=== PATIENT | female | born 1970 | race Caucasian/White ===

== ENCOUNTER 2016-11-08 20:22 | Emergency (ER) | payer OTHER ==
--- NOTE | 2016-11-08 21:09 | DIAGNOSTIC IMAGING REPORT ---
PROCEDURE: XR CHEST 1 VIEW INDICATION: CHEST PAIN TECHNIQUE: Portable AP view 08:52 p.m. COMPARISON: None. FINDINGS: Lungs are clear. Heart and mediastinum are normal. Thorax is normal. IMPRESSION: 1. Negative chest.
--- NOTE | 2016-11-08 21:42 | ED CLINICAL REPORT ---
Clinical Report - Physicians/Mid Levels [facility] [address] [place] [place] [address] 11/08/2016 20:23 Patient: BERNIE PARKS Time Seen: 20:36. Arrived- By private vehicle. Historian- patient. HISTORY OF PRESENT ILLNESS Chief Complaint: CHEST PAIN. This started today and is still present. It was abrupt in onset and has been constant. Onset during sleep. At its maximum, severity described as 5 / 10. When seen in the E.D., severity described as 5 / 10. Modifying factors- worsened by exertion, movement and walking. It is described as pressure and it is described as located in the central chest area. No radiation. No nausea, vomiting or diaphoresis. She has had mild difficulty breathing on exertion. The patient has had additional mild right-sided chest pain "pulsing". Similar symptoms previously: None. REVIEW OF SYSTEMS The patient has had a mild nonproductive cough. No pedal edema or edema, calf pain or pain or chills. No fever, sweats, cough, palpitations or abdominal pain. No constipation, diarrhea, nausea, vomiting or urinary problems. All systems otherwise negative, except as recorded above. PAST HISTORY Primary physician (Prosper). Problems: no known problems. Medications: None. Allergies: No Known Drug Allergy. SOCIAL HISTORY Never smoker. Occasional alcohol use. No drug use. FAMILY HISTORY No history of aortic aneurysm or dissection. Heart disease in first-degree relative (mother); cancer in first-degree relative (father). ADDITIONAL NOTES The nursing notes have been reviewed. PHYSICAL EXAM Vital Signs: 11/08/2016 20:31 BP: 155/98. HR: 92. RR: 18. O2 saturation: 97%. Temp: 97.9 F. Pain level now: 5/10. Have been reviewed. Appearance: Alert. She is morbidly obese. Eyes: Eyes normal inspection. ENT: Ears normal. Pharynx normal. Neck: Normal inspection. Neck supple. CVS: Normal heart rate and rhythm. Heart sounds normal. Respiratory: No respiratory distress. Chest pain reproducible with palpation of the sternum. Breath sounds normal. Abdomen: Soft and nontender. Bowel sounds normal. No organomegaly. No mass. Obese. Skin: Skin warm and dry. Normal skin color. Normal skin turgor. Extremities: Extremities exhibit normal ROM. No calf tenderness. No lower extremity edema. LABS, X-RAYS, AND EKG EKG: Rate: 87. Incomplete RBBB. Prior EKG unavailable. The study has been independently viewed by me. Chest X-ray: (IMPRESSION: 1. Negative chest.). The X-rays were interpreted by the radiologist and contemporaneously by me. Laboratory Tests: CBC w Diff: (SHARONA: 11/08/2016 20:35) ( MsgRcvd 11/08/2016 20:55) Final results Test Result Flag Units (Reference) WHITE BLOOD COUNT 7.7 K/uL (4.5-11.5) RED BLOOD COUNT 4.19 M/uL (4.00-5.20) HEMOGLOBIN 13.3 gm/dL (12.0-16.0) HEMATOCRIT 38.8 % (36.0-46.0) MEAN CELL VOLUME 93 fL (80-100) MEAN CORPUSCULAR HGB 32 pg (26-34) MEAN CORPUSCULAR HGB CONC 34 g/dL (31-37) RED CELL DISTRIBUTION WIDTH 13.0 % (11.6-14.8) PLATELET COUNT 341 K/uL (150-400) NEUTROPHIL % 59.6 % (50-75) LYMPH % 27.2 % (25-40) MONO % 9.9 % (3-14) EOSINOPHIL % 2.8 % (0-4) BASOPHIL % 0.5 % (0-2) PT with INR: (SHARONA: 11/08/2016 20:35) ( MsgRcvd 11/08/2016 21:06) Final results Test Result Flag Units (Reference) INR 0.9 (0.8-1.2) Low Intensity Therapy: INR 1.5-2.0 PT range 18.5-23.1Mod.Intensity Therapy: INR 2.0-3.0 PT range 23.1-31.5High Intensity Therapy: INR 2.5-3.5 PT range 27.4-35.5High Intensity Therapy 2: INR 3.0-4.0 PT range 31.5-39.3 APTT 31 SECONDS (24-34) D-DIMER QUANTITATIVE < 0.27 L ug/mLFEU (0.27-0.52) The primary value of this quantitative assay relates toits negative predictive value (i.e. exclusion) of pulmonaryembolism/deep vein thrombosis/DIC.Elevated levels of d-dimer may also occur with:, age, cancer, inflammation, liver disease,post-op, infection, hematoma, coronary disease, peripheralarteriopathy, bleeding disorders and thrombolytic treatment.Results should be correlated with other clinical andradiological data.Testing Methodology: Latex Immunoassay Lipase: (SHARONA: 11/08/2016 20:35) ( [facility] 11/08/2016 21:05) Final results Test Result Flag Units (Reference) LIPASE 176 U/L (73-393) AMYLASE 64 U/L (25-115) CHEM 13 PANEL: (SHARONA: 11/08/2016 20:35) ( VtgRcvd 11/08/2016 21:10) Final results Test Result Flag Units (Reference) GLUCOSE 109 mg/dL (70-110) BUN 15 mg/dL (7-18) CREATININE 1.1 mg/dL (0.6-1.3) Estimated GFR 57.35 mL/min Estimated GFR- >60 mL/min Note: Persistent reduction over 3 months in eGFR<60 mL/min/1.73 m2 defines CKD. Patients with eGFR values>=60 mL/min/1.73 m2 may also have CKD if evidence ofpersistent proteinuria. Additional information may be foundat www.kidney.org. SODIUM 140 mmol/L (136-145) POTASSIUM 3.4 L mmol/L (3.5-5.1) CHLORIDE 103 mmol/L (98-107) CARBON DIOXIDE 31 mmol/L (21-32) CALCIUM 8.7 mg/dL (8.5-10.1) TOTAL PROTEIN 7.9 g/dL (6.4-8.2) ALBUMIN 3.9 g/dL (3.3-5.0) BILIRUBIN, TOTAL 0.4 mg/dL (0.0-1.0) ALKALINE PHOSPHATASE 86 U/L (46-116) AST (SGOT) 12 L U/L (15-37) ALT (SGPT) 26 U/L (12-78) CPK 108 U/L (24-260) MAGNESIUM 2.1 mg/dL (1.8-2.4) TROPONIN I <0.05 L ng/mL (0.00-1.5) TROPONIN REFERENCE RANGE:<0.1 NEGATIVE0.1-1.5 INDETERMINANT>1.5 POSITIVE . PROGRESS AND PROCEDURES Course of Care: Patient is stable. Patient/family counseled. Old medical records reviewed. Disposition: Discharged. Condition: stable. CLINICAL IMPRESSION Acute dyspnea (mild). Atypical chest pain INSTRUCTIONS Do not work until released. Avoid stimulants (such as cigarettes, coffee, cold medicines, sinus medicines, street drugs). Warnings: Further evaluation is necessary. GENERAL WARNINGS: Return or contact your physician immediately if your condition worsens or changes unexpectedly, if not improving as expected, or if other problems arise. Prescription Medications: Prilosec 20 mg capsules: Take 1 capsule orally once daily. Dispense fifteen (15). No refills. Substitution is permissible. OTC Medications: Aspirin 325 mg (available over the counter): take 1 orally every 24 hours. Dispense thirty (30). No refills. Follow-up: Follow up with your doctor tomorrow. Call for the next available appointment. Follow up with a iron pellet tester- as recommended by your primary care physician. Understanding of the discharge instructions verbalized by patient. (Electronically signed by Fuentes Castañeda MD 11/09/2016 9:36) Addenda for BERNIE PARKS VisitID: [id number] Date: 11/08/2016 11/08/2016 22:01 20:40 11/08/2016 Site #1 started via IV in the right antecubital space with an 20g angiocath, with aseptic technique and good blood return; one attempt. Blood drawn: rainbow set. Labeled in the presence of the patient and sent to the lab. Saline lock flushed with 10 mL saline. IV Saline Lock Drip IV Discontinued: upon discharge. Total amount infused: 0 mL. IV patency established. IV site checked: no pain, redness, or swelling. IV flushed thoroughly. (Electronically signed by Emma Treviño R.N. - 11/08/2016 22:01)
--- NOTE | 2016-11-08 21:42 | ED CLINICAL REPORT ---
Clinical Report - Physicians/Mid Levels [facility] [address] [place] [address] 11/08/2016 20:23 Patient: BERNIE PARKS Time Seen: 20:36. Arrived- By private vehicle. Historian- patient. HISTORY OF PRESENT ILLNESS Chief Complaint: CHEST PAIN. This started today and is still present. It was abrupt in onset and has been constant. Onset during sleep. At its maximum, severity described as 5 / 10. When seen in the E.D., severity described as 5 / 10. Modifying factors- worsened by exertion, movement and walking. It is described as pressure and it is described as located in the central chest area. No radiation. No nausea, vomiting or diaphoresis. She has had mild difficulty breathing on exertion. The patient has had additional mild right-sided chest pain "pulsing". Similar symptoms previously: None. REVIEW OF SYSTEMS The patient has had a mild nonproductive cough. No pedal edema or edema, calf pain or pain or chills. No fever, sweats, cough, palpitations or abdominal pain. No constipation, diarrhea, nausea, vomiting or urinary problems. All systems otherwise negative, except as recorded above. PAST HISTORY Primary physician (Prosper). Problems: no known problems. Medications: None. Allergies: No Known Drug Allergy. SOCIAL HISTORY Never smoker. Occasional alcohol use. No drug use. FAMILY HISTORY No history of aortic aneurysm or dissection. Heart disease in first-degree relative (mother); cancer in first-degree relative (father). ADDITIONAL NOTES The nursing notes have been reviewed. PHYSICAL EXAM Vital Signs: 11/08/2016 20:31 BP: 155/98. HR: 92. RR: 18. O2 saturation: 97%. Temp: 97.9 F. Pain level now: 5/10. Have been reviewed. Appearance: Alert. She is morbidly obese. Eyes: Eyes normal inspection. ENT: Ears normal. Pharynx normal. Neck: Normal inspection. Neck supple. CVS: Normal heart rate and rhythm. Heart sounds normal. Respiratory: No respiratory distress. Chest pain reproducible with palpation of the sternum. Breath sounds normal. Abdomen: Soft and nontender. Bowel sounds normal. No organomegaly. No mass. Obese. Skin: Skin warm and dry. Normal skin color. Normal skin turgor. Extremities: Extremities exhibit normal ROM. No calf tenderness. No lower extremity edema. LABS, X-RAYS, AND EKG EKG: Rate: 87. Incomplete RBBB. Prior EKG unavailable. The study has been independently viewed by me. Chest X-ray: (IMPRESSION: 1. Negative chest.). The X-rays were interpreted by the radiologist and contemporaneously by me. Laboratory Tests: CBC w Diff: (SHARONA: 11/08/2016 20:35) ( MsgRcvd 11/08/2016 20:55) Final results Test Result Flag Units (Reference) WHITE BLOOD COUNT 7.7 K/uL (4.5-11.5) RED BLOOD COUNT 4.19 M/uL (4.00-5.20) HEMOGLOBIN 13.3 gm/dL (12.0-16.0) HEMATOCRIT 38.8 % (36.0-46.0) MEAN CELL VOLUME 93 fL (80-100) MEAN CORPUSCULAR HGB 32 pg (26-34) MEAN CORPUSCULAR HGB CONC 34 g/dL (31-37) RED CELL DISTRIBUTION WIDTH 13.0 % (11.6-14.8) PLATELET COUNT 341 K/uL (150-400) NEUTROPHIL % 59.6 % (50-75) LYMPH % 27.2 % (25-40) MONO % 9.9 % (3-14) EOSINOPHIL % 2.8 % (0-4) BASOPHIL % 0.5 % (0-2) PT with INR: (SHARONA: 11/08/2016 20:35) ( MsgRcvd 11/08/2016 21:06) Final results Test Result Flag Units (Reference) INR 0.9 (0.8-1.2) Low Intensity Therapy: INR 1.5-2.0 PT range 18.5-23.1Mod.Intensity Therapy: INR 2.0-3.0 PT range 23.1-31.5High Intensity Therapy: INR 2.5-3.5 PT range 27.4-35.5High Intensity Therapy 2: INR 3.0-4.0 PT range 31.5-39.3 APTT 31 SECONDS (24-34) D-DIMER QUANTITATIVE < 0.27 L ug/mLFEU (0.27-0.52) The primary value of this quantitative assay relates toits negative predictive value (i.e. exclusion) of pulmonaryembolism/deep vein thrombosis/DIC.Elevated levels of d-dimer may also occur with:, age, cancer, inflammation, liver disease,post-op, infection, hematoma, coronary disease, peripheralarteriopathy, bleeding disorders and thrombolytic treatment.Results should be correlated with other clinical andradiological data.Testing Methodology: Latex Immunoassay Lipase: (SHARONA: 11/08/2016 20:35) ( [facility] 11/08/2016 21:05) Final results Test Result Flag Units (Reference) LIPASE 176 U/L (73-393) AMYLASE 64 U/L (25-115) CHEM 13 PANEL: (SHARONA: 11/08/2016 20:35) ( GagRcvd 11/08/2016 21:10) Final results Test Result Flag Units (Reference) GLUCOSE 109 mg/dL (70-110) BUN 15 mg/dL (7-18) CREATININE 1.1 mg/dL (0.6-1.3) Estimated GFR 57.35 mL/min Estimated GFR- >60 mL/min Note: Persistent reduction over 3 months in eGFR<60 mL/min/1.73 m2 defines CKD. Patients with eGFR values>=60 mL/min/1.73 m2 may also have CKD if evidence ofpersistent proteinuria. Additional information may be foundat www.kidney.org. SODIUM 140 mmol/L (136-145) POTASSIUM 3.4 L mmol/L (3.5-5.1) CHLORIDE 103 mmol/L (98-107) CARBON DIOXIDE 31 mmol/L (21-32) CALCIUM 8.7 mg/dL (8.5-10.1) TOTAL PROTEIN 7.9 g/dL (6.4-8.2) ALBUMIN 3.9 g/dL (3.3-5.0) BILIRUBIN, TOTAL 0.4 mg/dL (0.0-1.0) ALKALINE PHOSPHATASE 86 U/L (46-116) AST (SGOT) 12 L U/L (15-37) ALT (SGPT) 26 U/L (12-78) CPK 108 U/L (24-260) MAGNESIUM 2.1 mg/dL (1.8-2.4) TROPONIN I <0.05 L ng/mL (0.00-1.5) TROPONIN REFERENCE RANGE:<0.1 NEGATIVE0.1-1.5 INDETERMINANT>1.5 POSITIVE . PROGRESS AND PROCEDURES Course of Care: Patient is stable. Patient/family counseled. Old medical records reviewed. Disposition: Discharged. Condition: stable. CLINICAL IMPRESSION Acute dyspnea (mild). Atypical chest pain INSTRUCTIONS Do not work until released. Avoid stimulants (such as cigarettes, coffee, cold medicines, sinus medicines, street drugs). Warnings: Further evaluation is necessary. GENERAL WARNINGS: Return or contact your physician immediately if your condition worsens or changes unexpectedly, if not improving as expected, or if other problems arise. Prescription Medications: Prilosec 20 mg capsules: Take 1 capsule orally once daily. Dispense fifteen (15). No refills. Substitution is permissible. OTC Medications: Aspirin 325 mg (available over the counter): take 1 orally every 24 hours. Dispense thirty (30). No refills. Follow-up: Follow up with your doctor tomorrow. Call for the next available appointment. Follow up with a political worker- as recommended by your primary care physician. Understanding of the discharge instructions verbalized by patient. (Electronically signed by Fuentes Castañeda MD 11/09/2016 9:36) Addenda for BERNIE PARKS VisitID: [id number] Date: 11/08/2016 11/08/2016 22:01 20:40 11/08/2016 Site #1 started via IV in the right antecubital space with an 20g angiocath, with aseptic technique and good blood return; one attempt. Blood drawn: rainbow set. Labeled in the presence of the patient and sent to the lab. Saline lock flushed with 10 mL saline. IV Saline Lock Drip IV Discontinued: upon discharge. Total amount infused: 0 mL. IV patency established. IV site checked: no pain, redness, or swelling. IV flushed thoroughly. (Electronically signed by Emma Treviño R.N. - 11/08/2016 22:01)
--- NOTE | 2016-11-08 21:42 | ED NURSING NOTES ---
Clinical Report - Nurses [facility] [address] [place] [address] 11/08/2016 20:23 Patient: BERNIE PARKS TRIAGE Triage time 20:31. Acuity: LEVEL 2. Chief Complaint: CHEST PAIN and NECK PAIN and SHORTNESS OF BREATH. --20:35 Emma Treviño R.N. 20:31 11/08/16. BP: 155/98. HR: 92. RR: 18. O2 saturation: 97%. Temp: 97.9 F (oral). Pain level now: 09/05. --20:35 Emma Treviño R.N. Weight: 138.7 kg stated. Height/Length: 66 inches Per Patient. BMI: 49.4. --20:35 Emma Treviño R.N. Medications None. --20:33 Emma Treviño R.N. Allergies No Known Drug Allergy. --20:33 Emma Treviño R.N. History Arrived by private vehicle. Historian: patient. Accompanied by friend. Primary physician (Prosper). This started last night. ( chest pain radiates to right side of chest. started around 300 am this morning constant all day with some SOB,). She has had difficulty breathing. 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 PAST MEDICAL HX: Immunizations: up-to-date. SOCIAL HX: Never smoker. Occasional alcohol use; consumes beer occasionally, liquor occasionally and wine occasionally. No drug use. ABUSE ASSESSMENT: No report of abuse. SELF HARM ASSESSMENT: A self harm assessment was performed. The patient answered "no" to the question "Have you recently felt down, depressed, or hopeless?", "Have you noticed less interest or pleasure in doing things?", "Do you have thoughts of harming or killing yourself?", "Are you here because you tried to hurt yourself?", "Have you ever tried to hurt yourself before today?", "Have you recently had thoughts about harming or killing others?" and "Do you have any dangerous items in your possession?". FALL RISK ASSESSMENT: Fall risk assessment completed. No fall risk identified. NUTRITIONAL RISK ASSESSMENT: The nutritional risk assessment revealed no deficiencies. FUNCTIONAL ASSESSMENT: Functional assessment: no impairments noted. LEARNING NEEDS ASSESSMENT: The learning needs assessment revealed no barriers. SKIN INTEGRITY ASSESSMENT: Skin integrity risk assessment completed. No skin integrity risk identified. --20:35 Emma Treviño R.N. PROBLEMS: no known problems. ADDITIONAL SURGERIES: Appendectomy. Knee Surgery. Rotator Cuff Surgery. --20:34 Emma Treviño R.N. Interventions ID band on patient. To treatment room. --20:35 Emma Treviño R.N. PHYSICAL ASSESSMENT Ambulatory to room. GENERAL / NEURO / PSYCH: Alert. Oriented X 4. Appears in no acute distress. HEENT: Mucous membranes are pink. RESPIRATORY: Respirations not labored. Chest nontender. Breath sounds within normal limits. CVS: Normal sinus rhythm noted. Heart sounds within normal limits. Pulses within normal limits. Capillary refill less than 2 seconds. GI / : Abdomen soft and nontender. EXTREMITIES: No lower extremity edema. SKIN: Skin is warm and dry. Normal skin turgor. Skin is non-tender. --20:36 Emma Treviño R.N. NURSING PROGRESS NOTES Patient gowned. Two patient identifiers checked. Call light placed in reach. Side rails up x 2. Bed placed in lowest position. Brakes of bed on. Patient ready for evaluation- chart flagged. --20:36 Emma Treviño R.N. 20:40 11/08/2016 Site #1 started via IV in the right antecubital space with an 20g angiocath, with aseptic technique and good blood return; one attempt. Blood drawn: rainbow set. Labeled in the presence of the patient and sent to the lab. Saline lock flushed with 10 mL saline. --20:42 Denise Nesbitt R.N. EKG time: (2032). EKG was ordered, performed by a tech and shown to the ED physician. --21:01 Frank Cornell, ER Casting Assistant 21:21 11/08/2016 Aspirin PO Tablets 325 mg given. Allergies verified and confirmed 5 rights. --21:21 Emma Treviño R.N. 21:21 11/08/16. BP: 136/79 taken on the left arm, while lying. HR: 84 (regular and normal rate). RR: 18 (regular and unlabored). O2 saturation: 97% on room air. Temp: deferred. Pain level now: 07/06. --21:23 Emma Treviño R.N. Overall patient status is improved- she states feels better. ( pt reports feels better, still c/o some breathing weird however is better, VSS, RR even and unlabored will continue to monitor). RESPIRATORY: No respiratory distress. Breath sounds normal. SKIN: Skin is warm and dry. Skin color within normal limits. Two patient identifiers checked. Call light placed in reach. Side rails up x 1. Bed placed in lowest position. Brakes of bed on. --21:23 Emma Treviño R.N. 21:42 11/08/2016 PROTONIX (Pantoprazole Sodium) IVP 40 mg given over 2 minute(s) via site #1. Allergies verified and confirmed 5 rights. IV patency established. IV site checked: no pain, redness, or swelling. IV flushed thoroughly pre- and post-medication administration. IVP given by RN. --21:42 Emma Treviño R.N. DISPOSITION / DISCHARGE Departure time: 2154. Condition at departure: improved and stable. No learning barriers present. Discharge instructions provided and reviewed with the patient. Reviewed medication(s) side effects, precautions, dosing and course information. Prescription(s) given to the patient. Work note given. Patient verbalized understanding. Written instructions provided in Nepalese. The patient was discharged home and accompanied by FRIEND. She left the Emergency Department ambulatory and via private vehicle. Certified Veterinary Technician driving. --21:59 Emma Treviño R.N. 21:55 11/08/16. BP: 139/85 taken on the left arm, while lying. HR: 90 (regular and normal rate). RR: 18 (regular and unlabored). O2 saturation: 99% on room air. Temp: deferred. Pain level now: 06/08. --21:59 Emma Treviño R.N. 21:55 11/08/2016 Site #1 removed upon discharge. Catheter intact. Manual pressure and bandage applied. --22:00 Emma Treviño R.N. Locked/Released at 11/08/2016 22:00 by Emma Treviño R.N.
--- NOTE | 2016-11-08 21:42 | ED ORDER SUMMARY ---
..... Patient: BERNIE PARKS OrderSheet [facility] VisitID: [id number] [place] [address] 46y, F Registration Date/Time: 11/08/2016 ORDER SHEET Weight: 138.7 kg (stated) Allergies: No Known Drug Allergy GENERAL ORDERS: Real Estate Services Coordinator (Continuous) (20:38 11/08/2016 CBradburn R.N. per protocol) (20:38 CBradburn R.N.) Chest 1V Urgent (20:38 11/08/2016 CBradburn R.N. per protocol) (Ack 20:50 Jeremy) (20:51 CHagnabor ER Accounting Clerks Supervisor) Cardiac Panel Stat (20:38 11/08/2016 CBradburn R.N. per protocol) (20:38 CBradburn R.N.) UA-Culture if indicated Urgent (20:38 11/08/2016 CBradburn R.N. per protocol) (Ack 20:50 RKjayden) EKG - ER Stat (20:38 11/08/2016 CBradburn R.N. per protocol) (20:38 CHagnabor ER Accounting Clerks Supervisor) BNP Urgent (20:45 11/08/2016 Kory LINDER) (Ack 20:50 RKjayden) (21:19 CBradburn R.N.) D-Dimer Urgent (20:45 11/08/2016 Kory LINDER) (Ack 20:50 RKjayden) (21:19 CHATOradburn R.N.) Lipase Urgent (20:45 11/08/2016 Kory LINDER) (Ack 20:50 RKjayden) (21:19 CBradburn R.N.) Amylase Urgent (20:45 11/08/2016 Kory LINDER) (Ack 20:50 Jeremy) (21:19 CHATOradburn R.N.) PT with INR Urgent (20:45 11/08/2016 Kory LINDER) (Ack 20:50 Jeremy) (21:19 Victoria R.N.) PTT Urgent (20:45 11/08/2016 Kory LINDER) (Ack 20:50 Jeremy) (21:19 CHATOradburn R.N.) MEDICATION ORDERS: Aspirin PO 325 mg (Do not crush or chew, NOW) (20:37 11/08/2016 Victoria R.N. per protocol) (Ack 20:43 Joeburn R.N.) (20:43 CHATOradburn R.N.) IV FLUIDS: IV Saline Lock (20:38 11/08/2016 Victoria R.N. per protocol) (Ack 20:43 Victoria R.N.) (20:43 CHATOradburn R.N.) Protonix IVP 40mg 40 mg (Mix in NS 10ml over 2min) (21:39 11/08/2016 Kory LINDER) (Ack 21:40 CBradoli R.N.) (21:42 Victoria R.N.) ORDER SHEET NOTES: [Electronically signed by Emma Treviño R.N. (22:00 11/08/2016)] [Electronically signed by Fuentes Castañeda MD (09:36 11/09/2016)] [Electronically locked/signed by Emma Treviño R.N. (22:00 11/08/2016)]
--- NOTE | 2016-11-08 21:42 | ED ORDER SUMMARY ---
..... Patient: BERNIE PARKS OrderSheet [facility] VisitID: [id number] [place] [address] 46y, F Registration Date/Time: 11/08/2016 ORDER SHEET Weight: 138.7 kg (stated) Allergies: No Known Drug Allergy GENERAL ORDERS: Substation Electrician Supervisor (Continuous) (20:38 11/08/2016 CBradburn R.N. per protocol) (20:38 CBradburn R.N.) Chest 1V Urgent (20:38 11/08/2016 CBradburn R.N. per protocol) (Ack 20:50 Jeremy) (20:51 CHagnabor ER Trailer Mechanic) Cardiac Panel Stat (20:38 11/08/2016 CBradburn R.N. per protocol) (20:38 CBradburn R.N.) UA-Culture if indicated Urgent (20:38 11/08/2016 CBradburn R.N. per protocol) (Ack 20:50 RKjayden) EKG - ER Stat (20:38 11/08/2016 CBradburn R.N. per protocol) (20:38 CHagnabor ER Trailer Mechanic) BNP Urgent (20:45 11/08/2016 Kory LINDER) (Ack 20:50 RKjayden) (21:19 CBradburn R.N.) D-Dimer Urgent (20:45 11/08/2016 Kory LINDER) (Ack 20:50 RKjayden) (21:19 CHATOradburn R.N.) Lipase Urgent (20:45 11/08/2016 Kory LINDER) (Ack 20:50 RKjayden) (21:19 CBradburn R.N.) Amylase Urgent (20:45 11/08/2016 Kory LINDER) (Ack 20:50 Jeremy) (21:19 CHATOradburn R.N.) PT with INR Urgent (20:45 11/08/2016 Kory LINDER) (Ack 20:50 Jeremy) (21:19 Victoria R.N.) PTT Urgent (20:45 11/08/2016 Kory LINDER) (Ack 20:50 Jeremy) (21:19 CHATOradburn R.N.) MEDICATION ORDERS: Aspirin PO 325 mg (Do not crush or chew, NOW) (20:37 11/08/2016 Victoria R.N. per protocol) (Ack 20:43 Joeburn R.N.) (20:43 CHATOradburn R.N.) IV FLUIDS: IV Saline Lock (20:38 11/08/2016 Victoria R.N. per protocol) (Ack 20:43 Victoria R.N.) (20:43 CHATOradburn R.N.) Protonix IVP 40mg 40 mg (Mix in NS 10ml over 2min) (21:39 11/08/2016 Kory LINDER) (Ack 21:40 CBradoli R.N.) (21:42 Victoria R.N.) ORDER SHEET NOTES: [Electronically signed by Emma Treviño R.N. (22:00 11/08/2016)] [Electronically signed by Fuentes Castañeda MD (09:36 11/09/2016)] [Electronically locked/signed by Emma Treviño R.N. (22:00 11/08/2016)]
--- NOTE | 2016-11-08 21:42 | ED NURSING NOTES ---
Clinical Report - Nurses [facility] [address] [place] [address] 11/08/2016 20:23 Patient: BERNIE PARKS TRIAGE Triage time 20:31. Acuity: LEVEL 2. Chief Complaint: CHEST PAIN and NECK PAIN and SHORTNESS OF BREATH. --20:35 Emma Treviño R.N. 20:31 11/08/16. BP: 155/98. HR: 92. RR: 18. O2 saturation: 97%. Temp: 97.9 F (oral). Pain level now: 09/05. --20:35 Emma Treviño R.N. Weight: 138.7 kg stated. Height/Length: 66 inches Per Patient. BMI: 49.4. --20:35 Emma Treviño R.N. Medications None. --20:33 Emma Treviño R.N. Allergies No Known Drug Allergy. --20:33 Emma Treviño R.N. History Arrived by private vehicle. Historian: patient. Accompanied by friend. Primary physician (Prosper). This started last night. ( chest pain radiates to right side of chest. started around 300 am this morning constant all day with some SOB,). She has had difficulty breathing. 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 PAST MEDICAL HX: Immunizations: up-to-date. SOCIAL HX: Never smoker. Occasional alcohol use; consumes beer occasionally, liquor occasionally and wine occasionally. No drug use. ABUSE ASSESSMENT: No report of abuse. SELF HARM ASSESSMENT: A self harm assessment was performed. The patient answered "no" to the question "Have you recently felt down, depressed, or hopeless?", "Have you noticed less interest or pleasure in doing things?", "Do you have thoughts of harming or killing yourself?", "Are you here because you tried to hurt yourself?", "Have you ever tried to hurt yourself before today?", "Have you recently had thoughts about harming or killing others?" and "Do you have any dangerous items in your possession?". FALL RISK ASSESSMENT: Fall risk assessment completed. No fall risk identified. NUTRITIONAL RISK ASSESSMENT: The nutritional risk assessment revealed no deficiencies. FUNCTIONAL ASSESSMENT: Functional assessment: no impairments noted. LEARNING NEEDS ASSESSMENT: The learning needs assessment revealed no barriers. SKIN INTEGRITY ASSESSMENT: Skin integrity risk assessment completed. No skin integrity risk identified. --20:35 Emma Treviño R.N. PROBLEMS: no known problems. ADDITIONAL SURGERIES: Appendectomy. Knee Surgery. Rotator Cuff Surgery. --20:34 Emma Treviño R.N. Interventions ID band on patient. To treatment room. --20:35 Emma Treviño R.N. PHYSICAL ASSESSMENT Ambulatory to room. GENERAL / NEURO / PSYCH: Alert. Oriented X 4. Appears in no acute distress. HEENT: Mucous membranes are pink. RESPIRATORY: Respirations not labored. Chest nontender. Breath sounds within normal limits. CVS: Normal sinus rhythm noted. Heart sounds within normal limits. Pulses within normal limits. Capillary refill less than 2 seconds. GI / : Abdomen soft and nontender. EXTREMITIES: No lower extremity edema. SKIN: Skin is warm and dry. Normal skin turgor. Skin is non-tender. --20:36 Emma Treviño R.N. NURSING PROGRESS NOTES Patient gowned. Two patient identifiers checked. Call light placed in reach. Side rails up x 2. Bed placed in lowest position. Brakes of bed on. Patient ready for evaluation- chart flagged. --20:36 Emma Treviño R.N. 20:40 11/08/2016 Site #1 started via IV in the right antecubital space with an 20g angiocath, with aseptic technique and good blood return; one attempt. Blood drawn: rainbow set. Labeled in the presence of the patient and sent to the lab. Saline lock flushed with 10 mL saline. --20:42 Denise Nesbitt R.N. EKG time: (2032). EKG was ordered, performed by a tech and shown to the ED physician. --21:01 Frank Cornell, ER Roaster Supervisor 21:21 11/08/2016 Aspirin PO Tablets 325 mg given. Allergies verified and confirmed 5 rights. --21:21 Emma Treviño R.N. 21:21 11/08/16. BP: 136/79 taken on the left arm, while lying. HR: 84 (regular and normal rate). RR: 18 (regular and unlabored). O2 saturation: 97% on room air. Temp: deferred. Pain level now: 07/06. --21:23 Emma Treviño R.N. Overall patient status is improved- she states feels better. ( pt reports feels better, still c/o some breathing weird however is better, VSS, RR even and unlabored will continue to monitor). RESPIRATORY: No respiratory distress. Breath sounds normal. SKIN: Skin is warm and dry. Skin color within normal limits. Two patient identifiers checked. Call light placed in reach. Side rails up x 1. Bed placed in lowest position. Brakes of bed on. --21:23 Emma Treviño R.N. 21:42 11/08/2016 PROTONIX (Pantoprazole Sodium) IVP 40 mg given over 2 minute(s) via site #1. Allergies verified and confirmed 5 rights. IV patency established. IV site checked: no pain, redness, or swelling. IV flushed thoroughly pre- and post-medication administration. IVP given by RN. --21:42 Emma Treviño R.N. DISPOSITION / DISCHARGE Departure time: 2154. Condition at departure: improved and stable. No learning barriers present. Discharge instructions provided and reviewed with the patient. Reviewed medication(s) side effects, precautions, dosing and course information. Prescription(s) given to the patient. Work note given. Patient verbalized understanding. Written instructions provided in [place]. The patient was discharged home and accompanied by FRIEND. She left the Emergency Department ambulatory and via private vehicle. [employer] Professional driving. --21:59 Emma Treviño R.N. 21:55 11/08/16. BP: 139/85 taken on the left arm, while lying. HR: 90 (regular and normal rate). RR: 18 (regular and unlabored). O2 saturation: 99% on room air. Temp: deferred. Pain level now: 06/08. --21:59 Emma Treviño R.N. 21:55 11/08/2016 Site #1 removed upon discharge. Catheter intact. Manual pressure and bandage applied. --22:00 Emma Treviño R.N. Locked/Released at 11/08/2016 22:00 by Emma Treviño R.N.
--- NOTE | 2016-11-09 09:36 | ED DISCHARGE INSTRUCTIONS ---
Patient: BERNIE PARKS General Instructions [facility] VisitID: [id number] [place] [address] 46y, F Registration Date/Time: 11/08/2016 Acute dyspnea (mild). Atypical chest pain INSTRUCTIONS Do not work until released. Avoid stimulants (such as cigarettes, coffee, cold medicines, sinus medicines, street drugs). Warnings: Further evaluation is necessary. GENERAL WARNINGS: Return or contact your physician immediately if your condition worsens or changes unexpectedly, if not improving as expected, or if other problems arise. Prescription Medications: Prilosec 20 mg capsules: Take 1 capsule orally once daily. Dispense fifteen (15). No refills. Substitution is permissible. OTC Medications: Aspirin 325 mg (available over the counter): take 1 orally every 24 hours. Dispense thirty (30). No refills. Follow-up: Follow up with your doctor tomorrow. Call for the next available appointment. Follow up with a repack room worker- as recommended by your primary care physician. Understanding of the discharge instructions verbalized by patient. ADDITIONAL INFORMATION Dyspnea (Shortness Of Breath) Shortness of Breath (also known as "Dyspnea") is the sense that you can't catch your breath or can't get enough air. Dyspnea can be caused by many different conditions such as: Acute asthma attack Worsening of emphysema (also called "COPD") -- a lung diseasethat is caused by smoking A mucus plug blocks a large air passage in the lung -- this can occur with emphysema or chronic bronchitis Congestive Heart Failure ("CHF") -- when a weak heart muscle allows excess fluid to collect inthe lungs Panic attacks, anxiety -- fear can cause rapid breathing ("hyperventilation") Pneumonia -- infection in the lung tissue Exposure to toxic fumes or smoke Pulmonary embolus (blood clot to the lung) Based on your visit today, the exact cause of your shortness of breath is not certain. Your tests do not show any of the serious causes of dyspnea. Sometimes, further testing is needed to find out if a serious problem exists. Therefore, it is important for you to watch for any new symptoms or worsening of your condition and follow up with your doctor as directed. Home Care: When your symptoms are better, resume your usual activities. If you smoke, you need to stop. Join a stop-smoking program or ask your doctor for help. Follow Up with your doctor or as advised by our staff. Get Prompt Medical Attention if any of the following occur: Increasing shortness of breath or wheezing Redness, pain or swelling in one leg Swelling in both legs or ankles Unexpected weight gain Chest, arm, shoulder, neck or upper back pain Dizziness, weakness or fainting Palpitations (the sense that your heart is fluttering, beating fast or hard) Fever of 100.4F (38C) or higher, or as directed by your healthcare provider Cough with dark colored or bloody sputum (mucus) Chest Pain, Uncertain Cause Chest pain can happen for a number of reasons. Sometimes the cause can not be determined. If yourcondition does not seem serious, and your pain does not appear to be coming from your heart, your doctor may recommend watching it closely. Sometimes the signs of a serious problem take more time to appear. Therefore, watch for the warning signs listed below. Home care After your visit, follow these recommendations: Rest today and avoid strenuous activity. Take any prescribed medicine as directed. Follow-up care Follow up with your doctor or this facility as instructed or if you do not start to feel better within 24 hours. Call 911 Get immediate medical attention if any of the following occur: A change in the type of pain: if it feels different, becomes more severe, lasts longer, or begins to spread into your shoulder, arm, neck, jaw or back Shortness of breath or increased pain with breathing Weakness, dizziness, or fainting Rapid heart beat Get prompt medical attention Call your doctor right away if any of the following occur: Cough with dark colored sputum (phlegm) or blood Fever of 100.4F(38C) or higher, or as directed by your health care provider Swelling, pain or redness in one leg Omeprazole Magnesium Gastro-resistant tablet What is this medicine? OMEPRAZOLE (oh ME pray zol) prevents the production of acid in the stomach. It is used to treat the symptoms of heartburn. You can buy this medicine without a prescription. This product is not for long-term use, unless otherwise directed by your doctor or health rn coronary care unit. How should I use this medicine? Take this medicine by mouth. Follow the directions on the product label. If you are taking this medicine without a prescription, take one tablet every day. Do not use for longer than 14 days or repeat a course of treatment more often than every 4 months unless directed by a doctor or healthcare professional. Take your dose at regular intervals every 24 hours. Swallow the tablet whole with a drink of water. Do not crush, break or chew. This medicine works best if taken on an empty stomach 30 minutes before breakfast. If you are using this medicine with the prescription of your doctor or healthcare professional, follow the directions you were given. Do not take your medicine more often than directed. Talk to your addiction nurse regarding the use of this medicine in children. Special care may be needed. What side effects may I notice from receiving this medicine? Side effects that you should report to your doctor or health rn coronary care unit as soon as possible: allergic reactions like skin rash, itching or hives, swelling of the face, lips, or tongue bone, muscle or joint pain breathing problems chest pain or chest tightness dark yellow or brown urine diarrhea dizziness fast, irregular heartbeat feeling faint or lightheaded fever or sore throat muscle spasm palpitations redness, blistering, peeling or loosening of the skin, including inside the mouth seizures tremors unusual bleeding or bruising unusually weak or tired yellowing of the eyes or skin Side effects that usually do not require medical attention (Report these to your doctor or health rn coronary care unit if they continue or are bothersome.): constipation dry mouth headache loose stools nausea What may interact with this medicine? Do not take this medicine with any of the following medications: atazanavir clopidogrel nelfinavir This medicine may also interact with the following medications: ampicillin certain medicines for anxiety or sleep certain medicines that treat or prevent blood clots like warfarin cyclosporine diazepam digoxin disulfiram iron salts phenytoin prescription medicine for fungal or yeast infection like itraconazole, ketoconazole, voriconazole saquinavir tacrolimus What if I miss a dose? If you miss a dose, take it as soon as you can. If it is almost time for your next dose, take only that dose. Do not take double or extra doses. Where should I keep my medicine? Keep out of the reach of children. Store at room temperature between 20 and 25 degrees C (68 and 77 degrees F). Protect from light and moisture. Throw away any unused medicine after the expiration date. What should I tell my health care provider before I take this medicine? They need to know if you have any of these conditions: black or bloody stools chest pain difficulty swallowing have had heartburn for over 3 months have heartburn with dizziness, lightheadedness or sweating liver disease stomach pain unexplained weight loss vomiting with blood wheezing an unusual or allergic reaction to omeprazole, other medicines, foods, dyes, or preservatives or trying to get breast-feeding What should I watch for while using this medicine? It can take several days before your heartburn gets better. Check with your doctor or health rn coronary care unit if your condition does not start to get better, or if it gets worse. Do not treat diarrhea with over the counter products. Contact your doctor if you have diarrhea that lasts more than 2 days or if it is severe and watery. Do not treat yourself for heartburn with this medicine for more than 14 days in a row. You should only use this medicine for a 2-week treatment period once every 4 months. If your symptoms return shortly after your therapy is complete, or within the 4 month time frame, call your doctor or health rn coronary care unit. Aspirin Oral tablet What is this medicine? ASPIRIN ( pir in) is a pain reliever. It is used to treat mild pain and fever. This medicine is also used as directed by a doctor to prevent and to treat heart attacks, to prevent strokes, and to treat arthritis or inflammation. How should I use this medicine? Take this medicine by mouth with a glass of water. Follow the directions on the package or prescription label. You can take this medicine with or without food. If it upsets your stomach, take it with food. Do not take your medicine more often than directed. Talk to your addiction nurse regarding the use of this medicine in children. While this drug may be prescribed for children as young as 12 years of age for selected conditions, precautions do apply. Children and teenagers should not use this medicine to treat chicken pox or flu symptoms unless directed by a doctor. Patients over 65 years old may have a stronger reaction and need a smaller dose. What side effects may I notice from receiving this medicine? Side effects that you should report to your doctor or health rn coronary care unit as soon as possible: allergic reactions like skin rash, itching or hives, swelling of the face, lips, or tongue breathing problems changes in hearing, ringing in the ears confusion general ill feeling or flu-like symptoms pain on swallowing redness, blistering, peeling or loosening of the skin, including inside the mouth or nose signs and symptoms of bleeding such as bloody or black, tarry stools; red or dark-brown urine; spitting up blood or brown material that looks like coffee grounds; red spots on the skin; unusual bruising or bleeding from the eye, gums, or nose trouble passing urine or change in the amount of urine unusually weak or tired yellowing of the eyes or skin Side effects that usually do not require medical attention (report to your doctor or health rn coronary care unit if they continue or are bothersome): diarrhea or constipation nausea, vomiting stomach gas, heartburn What may interact with this medicine? Do not take this medicine with any of the following medications: cidofovir ketorolac probenecid This medicine may also interact with the following medications: alcohol alendronate bismuth subsalicylate flavocoxid herbal supplements like feverfew, garlic, chad, ginkgo biloba, horse chestnut medicines for diabetes or glaucoma like acetazolamide, methazolamide medicines for gout medicines that treat or prevent blood clots like enoxaparin, heparin, ticlopidine, warfarin other aspirin and aspirin-like medicines NSAIDs, medicines for pain and inflammation, like ibuprofen or naproxen pemetrexed sulfinpyrazone varicella live vaccine What if I miss a dose? If you are taking this medicine on a regular schedule and miss a dose, take it as soon as you can. If it is almost time for your next dose, take only that dose. Do not take double or extra doses. Where should I keep my medicine? Keep out of the reach of children. Store at room temperature between 15 and 30 degrees C (59 and 86 degrees F). Protect from heat and moisture. Do not use this medicine if it has a strong vinegar smell. Throw away any unused medicine after the expiration date. What should I tell my health care provider before I take this medicine? They need to know if you have any of these conditions: anemia asthma bleeding problems child with chickenpox, the flu, or other viral infection diabetes gout if you frequently drink alcohol containing drinks kidney disease liver disease low level of vitamin K lupus smoke tobacco stomach ulcers or other problems an unusual or allergic reaction to aspirin, tartrazine dye, other medicines, dyes, or preservatives or trying to get breast-feeding What should I watch for while using this medicine? If you are treating yourself for pain, tell your doctor or health rn coronary care unit if the pain lasts more than 10 days, if it gets worse, or if there is a new or different kind of pain. Tell your doctor if you see redness or swelling. Also, check with your doctor if you have a fever that lasts for more than 3 days. Only take this medicine to prevent heart attacks or blood clotting if prescribed by your doctor or health rn coronary care unit. Do not take aspirin or aspirin-like medicines with this medicine. Too much aspirin can be dangerous. Always read the labels carefully. This medicine can irritate your stomach or cause bleeding problems. Do not smoke cigarettes or drink alcohol while taking this medicine. Do not lie down for 30 minutes after taking this medicine to prevent irritation to your throat. If you are scheduled for any medical or dental procedure, tell your healthcare provider that you are taking this medicine. You may need to stop taking this medicine before the procedure. You have been given the following additional information: Dyspnea Chest Pain, Uncertain Cause Omeprazole Magnesium Gastro-resistant tablet Aspirin Oral tablet Do not work until released. (Electronically signed by Fuentes Castañeda MD 11/09/2016 9:36)
--- NOTE | 2016-11-09 09:36 | ED MED RECONCILIATION SUMMARY ---
Patient: BERNIE PARKS Medication Reconciliation Report [facility] VisitID: [id number] [address] [place] [address] 46y, F Registration Date/Time: 11/08/2016 Weight: 138.7 kg Height/Length: 66 in. BMI: 49.4 ALLERGIES: No Known Drug Allergy The patient's Home Medications are listed below: NONE. The source(s) of the original Home Medication information: Not obtained. The following Medications were given to the patient in the Emergency Department: Aspirin [PO] PO 325 mg, administered: 11/08/2016 9:21:00 PM PROTONIX [IVP] IVP 40 mg, administered: 11/08/2016 9:42:00 PM The following Medications were prescribed to the patient: Prilosec 20 mg capsules: Take 1 capsule orally once daily. Dispense fifteen (15). No refills. Substitution is permissible. -- Fuentes Castañeda MD Aspirin 325 mg (available over the counter): take 1 orally every 24 hours. Dispense thirty (30). No refills. -- Fuentes Castañeda MD
--- NOTE | 2016-11-09 09:36 | ED DISCHARGE INSTRUCTIONS ---
Patient: BERNIE PARKS General Instructions [facility] VisitID: [id number] [place] [address] 46y, F Registration Date/Time: 11/08/2016 Acute dyspnea (mild). Atypical chest pain INSTRUCTIONS Do not work until released. Avoid stimulants (such as cigarettes, coffee, cold medicines, sinus medicines, street drugs). Warnings: Further evaluation is necessary. GENERAL WARNINGS: Return or contact your physician immediately if your condition worsens or changes unexpectedly, if not improving as expected, or if other problems arise. Prescription Medications: Prilosec 20 mg capsules: Take 1 capsule orally once daily. Dispense fifteen (15). No refills. Substitution is permissible. OTC Medications: Aspirin 325 mg (available over the counter): take 1 orally every 24 hours. Dispense thirty (30). No refills. Follow-up: Follow up with your doctor tomorrow. Call for the next available appointment. Follow up with a marketing programs specialist- as recommended by your primary care physician. Understanding of the discharge instructions verbalized by patient. ADDITIONAL INFORMATION Dyspnea (Shortness Of Breath) Shortness of Breath (also known as "Dyspnea") is the sense that you can't catch your breath or can't get enough air. Dyspnea can be caused by many different conditions such as: Acute asthma attack Worsening of emphysema (also called "COPD") -- a lung diseasethat is caused by smoking A mucus plug blocks a large air passage in the lung -- this can occur with emphysema or chronic bronchitis Congestive Heart Failure ("CHF") -- when a weak heart muscle allows excess fluid to collect inthe lungs Panic attacks, anxiety -- fear can cause rapid breathing ("hyperventilation") Pneumonia -- infection in the lung tissue Exposure to toxic fumes or smoke Pulmonary embolus (blood clot to the lung) Based on your visit today, the exact cause of your shortness of breath is not certain. Your tests do not show any of the serious causes of dyspnea. Sometimes, further testing is needed to find out if a serious problem exists. Therefore, it is important for you to watch for any new symptoms or worsening of your condition and follow up with your doctor as directed. Home Care: When your symptoms are better, resume your usual activities. If you smoke, you need to stop. Join a stop-smoking program or ask your doctor for help. Follow Up with your doctor or as advised by our staff. Get Prompt Medical Attention if any of the following occur: Increasing shortness of breath or wheezing Redness, pain or swelling in one leg Swelling in both legs or ankles Unexpected weight gain Chest, arm, shoulder, neck or upper back pain Dizziness, weakness or fainting Palpitations (the sense that your heart is fluttering, beating fast or hard) Fever of 100.4F (38C) or higher, or as directed by your healthcare provider Cough with dark colored or bloody sputum (mucus) Chest Pain, Uncertain Cause Chest pain can happen for a number of reasons. Sometimes the cause can not be determined. If yourcondition does not seem serious, and your pain does not appear to be coming from your heart, your doctor may recommend watching it closely. Sometimes the signs of a serious problem take more time to appear. Therefore, watch for the warning signs listed below. Home care After your visit, follow these recommendations: Rest today and avoid strenuous activity. Take any prescribed medicine as directed. Follow-up care Follow up with your doctor or this facility as instructed or if you do not start to feel better within 24 hours. Call 911 Get immediate medical attention if any of the following occur: A change in the type of pain: if it feels different, becomes more severe, lasts longer, or begins to spread into your shoulder, arm, neck, jaw or back Shortness of breath or increased pain with breathing Weakness, dizziness, or fainting Rapid heart beat Get prompt medical attention Call your doctor right away if any of the following occur: Cough with dark colored sputum (phlegm) or blood Fever of 100.4F(38C) or higher, or as directed by your health care provider Swelling, pain or redness in one leg Omeprazole Magnesium Gastro-resistant tablet What is this medicine? OMEPRAZOLE (oh ME pray zol) prevents the production of acid in the stomach. It is used to treat the symptoms of heartburn. You can buy this medicine without a prescription. This product is not for long-term use, unless otherwise directed by your doctor or health child care teacher. How should I use this medicine? Take this medicine by mouth. Follow the directions on the product label. If you are taking this medicine without a prescription, take one tablet every day. Do not use for longer than 14 days or repeat a course of treatment more often than every 4 months unless directed by a doctor or healthcare professional. Take your dose at regular intervals every 24 hours. Swallow the tablet whole with a drink of water. Do not crush, break or chew. This medicine works best if taken on an empty stomach 30 minutes before breakfast. If you are using this medicine with the prescription of your doctor or healthcare professional, follow the directions you were given. Do not take your medicine more often than directed. Talk to your liquor department manager regarding the use of this medicine in children. Special care may be needed. What side effects may I notice from receiving this medicine? Side effects that you should report to your doctor or health child care teacher as soon as possible: allergic reactions like skin rash, itching or hives, swelling of the face, lips, or tongue bone, muscle or joint pain breathing problems chest pain or chest tightness dark yellow or brown urine diarrhea dizziness fast, irregular heartbeat feeling faint or lightheaded fever or sore throat muscle spasm palpitations redness, blistering, peeling or loosening of the skin, including inside the mouth seizures tremors unusual bleeding or bruising unusually weak or tired yellowing of the eyes or skin Side effects that usually do not require medical attention (Report these to your doctor or health child care teacher if they continue or are bothersome.): constipation dry mouth headache loose stools nausea What may interact with this medicine? Do not take this medicine with any of the following medications: atazanavir clopidogrel nelfinavir This medicine may also interact with the following medications: ampicillin certain medicines for anxiety or sleep certain medicines that treat or prevent blood clots like warfarin cyclosporine diazepam digoxin disulfiram iron salts phenytoin prescription medicine for fungal or yeast infection like itraconazole, ketoconazole, voriconazole saquinavir tacrolimus What if I miss a dose? If you miss a dose, take it as soon as you can. If it is almost time for your next dose, take only that dose. Do not take double or extra doses. Where should I keep my medicine? Keep out of the reach of children. Store at room temperature between 20 and 25 degrees C (68 and 77 degrees F). Protect from light and moisture. Throw away any unused medicine after the expiration date. What should I tell my health care provider before I take this medicine? They need to know if you have any of these conditions: black or bloody stools chest pain difficulty swallowing have had heartburn for over 3 months have heartburn with dizziness, lightheadedness or sweating liver disease stomach pain unexplained weight loss vomiting with blood wheezing an unusual or allergic reaction to omeprazole, other medicines, foods, dyes, or preservatives or trying to get breast-feeding What should I watch for while using this medicine? It can take several days before your heartburn gets better. Check with your doctor or health child care teacher if your condition does not start to get better, or if it gets worse. Do not treat diarrhea with over the counter products. Contact your doctor if you have diarrhea that lasts more than 2 days or if it is severe and watery. Do not treat yourself for heartburn with this medicine for more than 14 days in a row. You should only use this medicine for a 2-week treatment period once every 4 months. If your symptoms return shortly after your therapy is complete, or within the 4 month time frame, call your doctor or health child care teacher. Aspirin Oral tablet What is this medicine? ASPIRIN ( pir in) is a pain reliever. It is used to treat mild pain and fever. This medicine is also used as directed by a doctor to prevent and to treat heart attacks, to prevent strokes, and to treat arthritis or inflammation. How should I use this medicine? Take this medicine by mouth with a glass of water. Follow the directions on the package or prescription label. You can take this medicine with or without food. If it upsets your stomach, take it with food. Do not take your medicine more often than directed. Talk to your liquor department manager regarding the use of this medicine in children. While this drug may be prescribed for children as young as 12 years of age for selected conditions, precautions do apply. Children and teenagers should not use this medicine to treat chicken pox or flu symptoms unless directed by a doctor. Patients over 65 years old may have a stronger reaction and need a smaller dose. What side effects may I notice from receiving this medicine? Side effects that you should report to your doctor or health child care teacher as soon as possible: allergic reactions like skin rash, itching or hives, swelling of the face, lips, or tongue breathing problems changes in hearing, ringing in the ears confusion general ill feeling or flu-like symptoms pain on swallowing redness, blistering, peeling or loosening of the skin, including inside the mouth or nose signs and symptoms of bleeding such as bloody or black, tarry stools; red or dark-brown urine; spitting up blood or brown material that looks like coffee grounds; red spots on the skin; unusual bruising or bleeding from the eye, gums, or nose trouble passing urine or change in the amount of urine unusually weak or tired yellowing of the eyes or skin Side effects that usually do not require medical attention (report to your doctor or health child care teacher if they continue or are bothersome): diarrhea or constipation nausea, vomiting stomach gas, heartburn What may interact with this medicine? Do not take this medicine with any of the following medications: cidofovir ketorolac probenecid This medicine may also interact with the following medications: alcohol alendronate bismuth subsalicylate flavocoxid herbal supplements like feverfew, garlic, chad, ginkgo biloba, horse chestnut medicines for diabetes or glaucoma like acetazolamide, methazolamide medicines for gout medicines that treat or prevent blood clots like enoxaparin, heparin, ticlopidine, warfarin other aspirin and aspirin-like medicines NSAIDs, medicines for pain and inflammation, like ibuprofen or naproxen pemetrexed sulfinpyrazone varicella live vaccine What if I miss a dose? If you are taking this medicine on a regular schedule and miss a dose, take it as soon as you can. If it is almost time for your next dose, take only that dose. Do not take double or extra doses. Where should I keep my medicine? Keep out of the reach of children. Store at room temperature between 15 and 30 degrees C (59 and 86 degrees F). Protect from heat and moisture. Do not use this medicine if it has a strong vinegar smell. Throw away any unused medicine after the expiration date. What should I tell my health care provider before I take this medicine? They need to know if you have any of these conditions: anemia asthma bleeding problems child with chickenpox, the flu, or other viral infection diabetes gout if you frequently drink alcohol containing drinks kidney disease liver disease low level of vitamin K lupus smoke tobacco stomach ulcers or other problems an unusual or allergic reaction to aspirin, tartrazine dye, other medicines, dyes, or preservatives or trying to get breast-feeding What should I watch for while using this medicine? If you are treating yourself for pain, tell your doctor or health child care teacher if the pain lasts more than 10 days, if it gets worse, or if there is a new or different kind of pain. Tell your doctor if you see redness or swelling. Also, check with your doctor if you have a fever that lasts for more than 3 days. Only take this medicine to prevent heart attacks or blood clotting if prescribed by your doctor or health child care teacher. Do not take aspirin or aspirin-like medicines with this medicine. Too much aspirin can be dangerous. Always read the labels carefully. This medicine can irritate your stomach or cause bleeding problems. Do not smoke cigarettes or drink alcohol while taking this medicine. Do not lie down for 30 minutes after taking this medicine to prevent irritation to your throat. If you are scheduled for any medical or dental procedure, tell your healthcare provider that you are taking this medicine. You may need to stop taking this medicine before the procedure. You have been given the following additional information: Dyspnea Chest Pain, Uncertain Cause Omeprazole Magnesium Gastro-resistant tablet Aspirin Oral tablet Do not work until released. (Electronically signed by Fuentes Castañeda MD 11/09/2016 9:36)
--- NOTE | 2016-11-09 09:36 | ED MAR SUMMARY ---
..... Medication Administration Record [facility] [address] [place] [address] Patient: BERNIE PARKS Visit ID: [id number] 46y, F Weight: 138.7 kg Height/Length: 66 in BMI: 49.4 ALLERGIES: No Known Drug Allergy Given 21:21 11/08/2016 Emma Treviño RMike Medication Administered: ASPIRIN [PO], Dose: 325 mg Tablets PO. Medication Ordered: Aspirin PO 325 mg (Do not crush or chew, NOW). Given 21:42 11/08/2016 Emma Treviño, RKarlN. Medication Administered: PROTONIX [IVP] (PANTOPRAZOLE SODIUM), Dose: 40 mg IVP over 2 minute(s), Site: #1 right AC. Medication Ordered: Protonix IVP 40mg 40 mg (Mix in NS 10ml over 2min).
--- NOTE | 2016-11-09 09:36 | ED MAR SUMMARY ---
..... Medication Administration Record [facility] [address] [place] [address] Patient: BERNIE PARKS Visit ID: [id number] 46y, F Weight: 138.7 kg Height/Length: 66 in BMI: 49.4 ALLERGIES: No Known Drug Allergy Given 21:21 11/08/2016 Emma Treviño RMkie Medication Administered: ASPIRIN [PO], Dose: 325 mg Tablets PO. Medication Ordered: Aspirin PO 325 mg (Do not crush or chew, NOW). Given 21:42 11/08/2016 Emma Treviño, RKarlN. Medication Administered: PROTONIX [IVP] (PANTOPRAZOLE SODIUM), Dose: 40 mg IVP over 2 minute(s), Site: #1 right AC. Medication Ordered: Protonix IVP 40mg 40 mg (Mix in NS 10ml over 2min).
--- NOTE | 2016-11-09 09:36 | ED MED RECONCILIATION SUMMARY ---
Patient: BERNIE PARKS Medication Reconciliation Report [facility] VisitID: [id number] [address] [place] [address] 46y, F Registration Date/Time: 11/08/2016 Weight: 138.7 kg Height/Length: 66 in. BMI: 49.4 ALLERGIES: No Known Drug Allergy The patient's Home Medications are listed below: NONE. The source(s) of the original Home Medication information: Not obtained. The following Medications were given to the patient in the Emergency Department: Aspirin [PO] PO 325 mg, administered: 11/08/2016 9:21:00 PM PROTONIX [IVP] IVP 40 mg, administered: 11/08/2016 9:42:00 PM The following Medications were prescribed to the patient: Prilosec 20 mg capsules: Take 1 capsule orally once daily. Dispense fifteen (15). No refills. Substitution is permissible. -- Fuentes Castañeda MD Aspirin 325 mg (available over the counter): take 1 orally every 24 hours. Dispense thirty (30). No refills. -- Fuentes Castañeda MD
== END 2016-11-08 21:55 | disposition home or self-care (01) ==
LOC: ED SRH 20:22
DX: R07.89 Other chest pain (principal); R06.00 Dyspnea, unspecified
CPT/HCPCS: 90100; 90616; 91320; 91556; 92235; 92530; 92610; 92720; 94001; 94060; 95059